=== PATIENT | female | born 1950 | race Caucasian/White ===

== ENCOUNTER 2016-08-16 18:18 | Observation (INO) | payer OTHER ==
[~2016-08-16] VITALS: Ht 170.2 cm; Wt 63.0 kg
[~2016-08-16 18:18] MED LIST: XANA0.5T PO
[2016-08-16 18:30] VITALS: BP 134/66; PULSE 73; RESP 18; TEMP 98.6; O2SAT 96
[2016-08-16 19:00] VITALS: RESP 15; O2SAT 98
[2016-08-16] MEDS ORDERED: SODIUM CHLOR 0.9% 1000 ML INJ 1,000 ML IV SCH ×3 (19:10→21:29)
--- NOTE | 2016-08-16 19:56 | RADRPT ---
EXAM DATE/TIME: 08/16/2016 19:20 [facility] COMPARISON: No previous studies available for comparison. INDICATIONS : Syncope MEDICAL HISTORY : None. SURGICAL HISTORY : None. ENCOUNTER: Initial ACUITY: 1 day PAIN SCORE: Non-responsive. LOCATION: chest FINDINGS: A single view of the chest demonstrates the lungs to be symmetrically aerated without evidence of mas s, infiltrate or effusion. The cardiomediastinal contours are unremarkable. Osseous structures are intact. CONCLUSION: The lungs are clear. No evidence of pneumothorax. Alcon Trejo MD on August 16, 2016 at 19:53 Board Certified Radiologist. This report was verified electronically.
[2016-08-16 19:58] LABS: AUTOMATED NEUTROPHIL # 8.3 TH/MM3 (1.8-7.7); BASOPHIL % 0.1 % (0.0-2.0); EOSINOPHIL % 0.3 % (0.0-4.0); HEMATOCRIT 37.5 % (35.0-46.0); HEMO FLAGS DIFF FINAL; LYMPH % 6.8 % (9.0-44.0); LYMPHOCYTE # 0.6 TH/MM3 (1.0-4.8); MEAN CELL VOLUME 92.2 FL (80.0-100.0); MEAN CORPUSCULAR HEMOGLOBIN 31.9 PG (27.0-34.0); MEAN CORPUSCULAR HGB CONC 34.6 % (32.0-36.0); MONO % 4.7 % (0.0-8.0); NEUT % 88.1 % (16.0-70.0); PLATELET COUNT 282 TH/MM3 (150-450); RED BLOOD COUNT 4.07 MIL/MM3 (4.00-5.30); RED CELL DISTRIBUTION WIDTH 13.5 % (11.6-17.2); WHITE BLOOD COUNT 9.4 TH/MM3 (4.0-11.0)
--- NOTE | 2016-08-16 20:00 | RADRPT ---
EXAM DATE/TIME: 08/16/2016 19:21 [facility] COMPARISON: No previous studies available for comparison. INDICATIONS : Altered mental status today. RADIATION DOSE: 29.34 CTDIvol (mGy) MEDICAL HISTORY : None SURGICAL HISTORY : None. ENCOUNTER: Initial ACUITY: 1 day PAIN SCALE: Non-responsive LOCATION: Bilateral head TECHNIQUE: Multiple contiguous axial images were obtained of the head. Using automated exposure control and adj ustment of the mA and/or kV according to patient size, radiation dose was kept as low as reasonably a chievable to obtain optimal diagnostic quality images. DICOM format image data is available electro nically for review and comparison. FINDINGS: CEREBRUM: The ventricles are normal for age. No evidence of midline shift, mass lesion, hemorrhage or acute in farction. No extra-axial fluid collections are seen. POSTERIOR FOSSA: The cerebellum and brainstem are intact. The 4th ventricle is midline. The cerebellopontine angle i s unremarkable. EXTRACRANIAL: The visualized portion of the orbits is intact. SKULL: The calvaria is intact. No evidence of skull fracture. CONCLUSION: Negative noncontrast CT brain. Alcon Trejo MD on August 16, 2016 at 19:57 Board Certified Radiologist. This report was verified electronically.
[2016-08-16 20:16] LABS: AST (GOT) 17 U/L (15-37); BICARBONATE 26.3 MEQ/L (21.0-32.0); BLOOD UREA NITROGEN 6 MG/DL (7-18); GLOMERULAR FILTRATION RATE 101 ML/MIN (>89); MAGNESIUM 2.2 MG/DL (1.5-2.5)
--- NOTE | 2016-08-16 20:24 | PD ---
HPI Chief Complaint: Altered Mental Status Time Seen by Provider: 20:20 Travel History International Travel<30 days: No Contact w/Intl Traveler<30days: No Traveled to known affect area: No History of Present Illness HPI 65-year-old female that presents to the ED for evaluation of upper mental status. Patient was brought here by ambulance for evaluation of this. Patient reportedly possibly took one of her Xanax. Patient was found at her home of residence with no pants sleeping on the ER. Per report patient apparently was put in retirement with her son yesterday and she was released from retirement yesterday and apparently she is feeling guilty because her son is still in retirement. Patient does have a history of mood disorder and has been seen here psychiatrically before. Patient apparently takes Xanax 2 mg chronically and possibly 2. Unclear history as patient at the time appears to be altered and sedated. She is able to respond to stimuli and open her eyes when questioning does for the most part she continues to fall asleep on my examination. She has no obvious sign of trauma. No allergies to medication. No cuts that I can see. No other medical problems. Again history is somewhat limited because of patient's mental status. PFSH Past Medical History Medical History: Unable to Obtain Anxiety: Yes Cancer: No Immune Disorder: No Psychiatric: Yes (PTSD) Tetanus Vaccination: Unknown ?: Not Past Surgical History Surgical History: Unable to Obtain Social History Alcohol Use: Yes Tobacco Use: No Substance Use: No Allergies-Medications (Allergen,Severity, Reaction): Coded Allergies: No Known Allergies (Unverified , 03/03/14) Reported Meds & Prescriptions Reported Meds & Active Scripts Active Active Prescriptions or Reported Medications Unobtainable Review of Systems ROS Limitations: Intoxication, Altered Mental Status Except as stated in HPI: all other systems reviewed are Neg Physical Exam Exam Limitations: Intoxication, Altered Mental Status Narrative GENERAL: SKIN: Warm and dry. HEAD: Atraumatic. Normocephalic. EYES: Pupils equal and round. No scleral icterus. No injection or drainage. ENT: No nasal bleeding or discharge. Mucous membranes pink and moist. Tongue is midline. No uvula deviation. NECK: Trachea midline. No JVD. CARDIOVASCULAR: Regular rate and rhythm. No murmurs, S3, S4. RESPIRATORY: No accessory muscle use. Clear to auscultation. Breath sounds equal bilaterally. GASTROINTESTINAL: Abdomen soft, non-tender, nondistended. Hepatic and splenic margins not palpable. MUSCULOSKELETAL: Extremities without clubbing, cyanosis, or edema. No obvious deformities. Full range of motion of the upper and lower extremities bilaterally. 2+ pulses bilaterally. No lumbar, thoracic, cervical spine tenderness to palpation. NEUROLOGICAL: Awake and alert. No obvious cranial nerve deficits. Motor grossly within normal limits. Five out of 5 muscle strength in the arms and legs. Normal speech. PSYCHIATRIC: Altered mood and affect; insight and judgment are hard to assess Data Data Last Documented VS Vital Signs Date Time Temp Pulse Resp B/P Pulse Ox O2 Delivery O2 Flow Rate FiO2 08/16/16 19:00 15 98 Room Air 08/16/16 19:00 77 08/16/16 18:30 98.6 134/66 Orders Electrocardiogram (08/16/16 19:09) Complete Blood Count With Diff (08/16/16 19:09) Comprehensive Metabolic Panel (08/16/16 19:) Ckmb (Isoenzyme) Profile (08/16/16:) Troponin I (08/16/16:) Prothrombin Time / Inr (Pt) (08/16/16:09) Act Partial Throm Time (Ptt) (08/16/16 19:09) Blood Culture (08/16/16:) Lipase (08/16/16:) Urinalysis - C+S If Indicated (08/16/16 19:09) Cath For Specimen (08/16/16 19:09) Magnesium (Mg) (08/16/16 19:09) Ammonia (08/16/16:) Thyroid Stimulating Hormone (08/16/16 19:09) Chest, Single Ap (08/16/16:) Ct Brain W/O Iv Contrast(Rout) (08/16/16 19:09) Iv Access Insert/Monitor (08/16/16 19:09) Ecg Monitoring (08/16/16:) Oximetry (08/16/16 19:09) Drug Screen, Random Urine (08/16/16 19:09) Alcohol (Ethanol) (08/16/16 19:09) Salicylates (Aspirin) (08/16/16 19:09) Tylenol (Acetaminophen) (08/16/16 19:09) Sodium Chlor 0.9% 1000 Ml Inj (Ns 1000 M (08/16/16 19:10) Lactic Acid (08/16/16 19:14) Labs Laboratory Tests Test 08/16/16 08/16/16 19:35 19:42 White Blood Count 9.4 TH/MM3 Red Blood Count 4.07 MIL/MM3 Hemoglobin 13.0 GM/DL Hematocrit 37.5 % Mean Corpuscular Volume 92.2 FL Mean Corpuscular Hemoglobin 31.9 PG Mean Corpuscular Hemoglobin 34.6 % Concent Red Cell Distribution Width 13.5 % Platelet Count 282 TH/MM3 Mean Platelet Volume 8.2 FL Neutrophils (%) (Auto) 88.1 % Lymphocytes (%) (Auto) 6.8 % Monocytes (%) (Auto) 4.7 % Eosinophils (%) (Auto) 0.3 % Basophils (%) (Auto) 0.1 % Neutrophils # (Auto) 8.3 TH/MM3 Lymphocytes # (Auto) 0.6 TH/MM3 Monocytes # (Auto) 0.4 TH/MM3 Eosinophils # (Auto) 0.0 TH/MM3 Basophils # (Auto) 0.0 TH/MM3 CBC Comment DIFF FINAL Differential Comment Carbon Dioxide Level 26.3 MEQ/L Blood Urea Nitrogen 6 MG/DL Creatinine 0.60 MG/DL Estimat Glomerular Filtration 101 ML/MIN Rate Random Glucose 92 MG/DL Calcium Level 8.4 MG/DL Magnesium Level 2.2 MG/DL Aspartate Amino Transf 17 U/L (AST/SGOT) Albumin 4.0 GM/DL Lipase 188 U/L Salicylates Level 1.8 MG/DL Ethyl Alcohol Level 91 MG/DL Ammonia 28 MCMOL/L [facility] Medical Decision Making Medical Screen Exam Complete: Yes Emergency Medical Condition: Yes Medical Record Reviewed: Yes Interpretation(s) Last Impressions Head CT 08/16/161908 Signed Impressions: Service Date/Time: Tuesday, August 16, 2016 19:21 - CONCLUSION: Negative noncontrast CT brain. Alcon Trejo MD Chest X-Ray 08/16/161908 Signed Impressions: Service Date/Time: Tuesday, August 16, 2016 19:20 - CONCLUSION: The lungs are clear. No evidence of pneumothorax. Alcon Treoj MD CBC & BMP Diagram 08/16/16 19:35 Differential Diagnosis Altered mental status versus overdose versus alcohol abuse versus benzo intoxication versus suicidal ideation Narrative Course 65-year-old female that presents to the ED for evaluation of altered mental status. Patient was properly examined and was found to have signs and symptoms consistent with appears to be altered mental status. Unclear etiology. Patient does appear to smell somewhat of alcohol and possibly took some benzos. History is difficult because patient is lethargic on examination but arousable. She seems to be protecting her airway well. She is neurovascular intact otherwise. No signs of trauma. Labs and imaging will be ordered. Labs and imaging showed Scripts Unable to Obtain Active Prescriptions or Reported Meds Francis Barker Aug 16, 2016 20:24
[2016-08-16 20:32] LABS: APTT (PATIENT) 24.7 SEC (24.3-30.1); INTERNATIONAL NORMALIZED RATIO 0.9 RATIO
[2016-08-16 20:37] LABS: ACETAMINOPHEN LESS THAN 2.0 MCG/ML (10.0-30.0); ALKALINE PHOSPHATASE 44 U/L (45-117); ALT (GPT) 20 U/L (10-53); ANION GAP 8 MEQ/L (5-15); CHLORIDE 90 MEQ/L (98-107); CREATINE KINASE 194 U/L (26-192); POTASSIUM 3.5 MEQ/L (3.5-5.1); TOTAL BILIRUBIN ADULT 0.5 MG/DL (0.2-1.0)
[2016-08-16 20:40] LABS: SODIUM (NA) 124 MEQ/L (136-145)
[2016-08-16 20:56] LABS: CKMB 2.1 NG/ML (0.5-3.6)
[2016-08-16 21:00] VITALS: BP 117/59; PULSE 74; RESP 14; O2SAT 94
[2016-08-16 21:15] LABS: BLOOD, URINE SMALL (NEG); COMMENT (UR) CULT NOT INDICATED; CULTURE IF INDICATED CULT NOT INDICATED; GLUCOSE,URINE NEG (NEG); KETONE, URINE NEG (NEG); NITRITE,URINE NEG (NEG); URINE COLOR LIGHT-YELLOW (YELLW/STRAW)
[2016-08-16 21:23] LABS: AMPHETAMINE, URINE NEG (NEG); BARBITURATES, URINE NEG (NEG); COCAINE, URINE NEG (NEG)
[2016-08-16] MEDS ORDERED: BISACODYL 10 MG SUPP RECTAL PRN (21:30)
[2016-08-16] MEDS ORDERED: SENNOSIDES 8.6 MG TAB PO PRN (21:30)
[2016-08-16] MEDS ORDERED: ACETAMINOPHEN 325 MG TAB PO PRN (21:30)
[2016-08-16] MEDS ORDERED: LACTULOSE SYRUP 20 GM/30 ML CUP PO PRN (21:30)
[2016-08-16] MEDS ORDERED: MAGNESIUM HYDROXIDE SUSP 30 ML CUP PO PRN (21:30)
[2016-08-16] MEDS ORDERED: SODIUM CHLORIDE 0.9% FLUSH 10 ML FLUSH IV FLUSH PRN (21:30)
[2016-08-16] MEDS ORDERED: ONDANSETRON HCL 4 MG/2 ML VIAL IVP PRN (21:30)
--- NOTE | 2016-08-16 21:32 | HHI.HP ---
[facility] Service [place] [facility] Primary Care Physician Douglas Maldonado MD Admission Diagnosis altered mental status, hyponatremia, BA Diagnoses: (1) Encephalopathy Diagnosis: Principal (2) Alcohol intoxication Diagnosis: Principal (3) Dehydration Diagnosis: Principal (4) Hyponatremia Diagnosis: Principal (5) Lactic acidosis Diagnosis: Principal (6) Suicidal ideation Diagnosis: Principal Travel History International Travel<30 Days: No Contact w/Intl Traveler <30 Da: No Traveled to Known Affected Are: No History of Present Illness This is a 65-year-old female with a PMH of Anxiety, PTSD, Mood Disorder and Alcohol Abuse who was brought to the ER by EMS after being found lying in her front yard without pants on. Per report, states pt upset because Son is in shelter and she feels guilty and had taken one tablet of Xanax. On arrival, was noted to be lethargic, intermittently arousable and answering only few questions. While in ER, pt w/ improved mental status, did relay Suicidal Ideation, currently under [place]. On arrival, BP 117/59, HR 74, O2 sat 94% on RA, Afebrile. CBC unremarkable. Na 124, Lactic Acid 2.2. Ammonia 28. INR 0.9. UA negative. Urine Drug Screen positive for Benzo. Alcohol 91. CT Head negative. CXR with no acute findings. Review of Systems ROS: Unable to obtain secondary to altered mental status. Past Family Social History Past Medical History PMH: Anxiety, PTSD, Mood Disorder and Alcohol Abuse Past Surgical History PAST SURGICAL HISTORY: Unknown Allergies: Coded Allergies: No Known Allergies (Unverified , 03/03/14) Family History PAST FAMILY HISTORY: Reviewed. No h/o DM or CAD Social History PAST SOCIAL HISTORY: History of alcohol abuse, unable to quantify. Negative for tobacco or drugs. Physical Exam Vital Signs Vital Signs Date Time Temp Pulse Resp B/P Pulse Ox O2 Delivery O2 Flow Rate FiO2 08/16/16 19:00 15 98 Room Air 08/16/16 19:00 77 16 97 Room Air 08/16/16 18:30 98.6 73 18 134/66 96 Physical Exam PE: GENERAL: Middle-aged white female in no acute distress. Intoxicated, smells of alcohol, rouses to name, answers few questions. HEENT: PERRLA, EOMI. No scleral icterus or conjunctival pallor. No lid lag or facial droop. CARDIOVASCULAR: Regular rate and rhythm. No obvious murmurs to auscultation. No chest tenderness to palpation. RESPIRATORY: No obvious rhonchi or wheezing. Clear to auscultation. Breath sounds equal bilaterally. GASTROINTESTINAL: Abdomen soft, non-tender, nondistended. BS normal. MUSCULOSKELETAL: Extremities without clubbing, cyanosis, or edema. No obvious deformities. NEUROLOGICAL: Awake, alert and oriented x4. No focal neurologic deficits. Moving both upper and lower extremities spontaneously. Laboratory Laboratory Tests Test 08/16/16 08/16/16 08/16/16 19:35 19:42 20:15 White Blood Count 9.4 Red Blood Count 4.07 Hemoglobin 13.0 Hematocrit 37.5 Mean Corpuscular Volume 92.2 Mean Corpuscular Hemoglobin 31.9 Mean Corpuscular Hemoglobin 34.6 Concent Red Cell Distribution Width 13.5 Platelet Count 282 Mean Platelet Volume 8.2 Neutrophils (%) (Auto) 88.1 Lymphocytes (%) (Auto) 6.8 Monocytes (%) (Auto) 4.7 Eosinophils (%) (Auto) 0.3 Basophils (%) (Auto) 0.1 Neutrophils # (Auto) 8.3 Lymphocytes # (Auto) 0.6 Monocytes # (Auto) 0.4 Eosinophils # (Auto) 0.0 Basophils # (Auto) 0.0 CBC Comment DIFF FINAL Differential Comment Prothrombin Time 10.0 Prothromb Time International 0.9 Ratio Activated Partial 24.7 Thromboplast Time Sodium Level 124 Potassium Level 3.5 Chloride Level 90 Carbon Dioxide Level 26.3 Anion Gap 8 Blood Urea Nitrogen 6 Creatinine 0.60 Estimat Glomerular Filtration 101 Rate Random Glucose 92 Calcium Level 8.4 Magnesium Level 2.2 Total Bilirubin 0.5 Aspartate Amino Transf 17 (AST/SGOT) Alanine Aminotransferase 20 (ALT/SGPT) Alkaline Phosphatase 44 Total Creatine Kinase 194 Creatine Kinase MB 2.1 Creatine Kinase MB % 1.1 Troponin I LESS THAN 0.02 Total Protein 7.0 Albumin 4.0 Lipase 188 Thyroid Stimulating Hormone 0.588 3rd Gen Salicylates Level 1.8 Acetaminophen Level LESS THAN 2.0 Ethyl Alcohol Level 91 Lactic Acid Level 2.2 Ammonia 28 Urine Color LIGHT-YELLOW Urine Turbidity CLEAR Urine pH 6.0 Urine Specific [place] 1.004 Urine Protein NEG Urine Glucose (UA) NEG Urine Ketones NEG Urine Occult Blood SMALL Urine Nitrite NEG Urine Bilirubin NEG Urine Urobilinogen LESS THAN 2.0 Urine Leukocyte Esterase NEG Urine RBC 2 Urine WBC LESS THAN 1 Microscopic Urinalysis Comment CULT NOT INDICATED Urine Opiates Screen NEG Urine Barbiturates Screen NEG Urine Amphetamines Screen NEG Urine Benzodiazepines Screen POS Urine Cocaine Screen NEG Urine Cannabinoids Screen NEG Date/Time Procedure Status Source Growth 08/16/16 19:46 Aerobic Blood Culture Received Blood Peripheral Pending 08/16/16 19:46 Anaerobic Blood Culture Received Blood Peripheral Pending Result Diagram: 08/16/16193408/16/161934 Assessment and Plan Problem List: (1) Encephalopathy ICD Code: G93.40 Status: Acute (2) Alcohol intoxication ICD Code: F10.929 Status: Acute (3) Suicidal ideation ICD Code: R45.851 Status: Acute (4) Hyponatremia ICD Code: E87.1 Status: Acute (5) Lactic acidosis ICD Code: E87.2 Status: Acute (6) Dehydration ICD Code: E86.0 Status: Acute Assessment and Plan A/P: 1. Encephalopathy: Likely secondary to Alcohol Intoxication/Benzo. CT Head w / no acute findings, images reviewed by me. Mental status improved while in ER , currently more rousable. Neuro checks q4h. 2. Alcohol Intoxication: H/o Alcohol Abuse w/ Acute Alcohol Intoxication, Alcohol 91. Drinks daily per report, unknown amount. CIWA, Seizure Precautions , MVT/Thiamine/Folate replacement. 3. Suicidal Ideation: Per , pt feeling guilty because Son is in shelter. Pt relayed suicidal ideation, currently under [place] Act. Consult Psych for further eval. 4. Hyponatremia: Na 124, likely secondary to alcohol abuse/dehydration, s/p 2L IVF in ER, will recheck labs. 5. Lactic Acidosis: Lactate 2.2, no evidence of sepsis, likely secondary to dehydration. Repeat lactate 6. DVT Prophylaxis: SCD/Teds. 7. Social work for d/c planning as needed. 8. Case discussed w/ ER physician at length. Sirisha Mon MD Aug 16, 2016 21:32
[2016-08-16 23:12] LABS: BICARBONATE 25.4 MEQ/L (21.0-32.0)
[2016-08-17 01:54] VITALS: BP 121/68; PULSE 78; RESP 18; TEMP 98.8; O2SAT 97
[2016-08-17 04:00] VITALS: BP 110/65; PULSE 77; RESP 18; TEMP 98; O2SAT 96
[2016-08-17 06:02] LABS: AUTOMATED NEUTROPHIL # 5.1 TH/MM3 (1.8-7.7); BASOPHIL % 0.2 % (0.0-2.0); EOSINOPHIL % 0.7 % (0.0-4.0); HEMO FLAGS DIFF FINAL; LYMPH % 14.8 % (9.0-44.0); MEAN CELL VOLUME 92.1 FL (80.0-100.0); MEAN CORPUSCULAR HEMOGLOBIN 31.3 PG (27.0-34.0); MONO % 7.8 % (0.0-8.0); NEUT % 76.5 % (16.0-70.0); PLATELET COUNT 267 TH/MM3 (150-450); RED CELL DISTRIBUTION WIDTH 13.2 % (11.6-17.2); WHITE BLOOD COUNT 6.7 TH/MM3 (4.0-11.0)
[2016-08-17 06:31] LABS: ALKALINE PHOSPHATASE 37 U/L (45-117); ALT (GPT) 16 U/L (10-53); ANION GAP 8 MEQ/L (5-15); AST (GOT) 16 U/L (15-37); BICARBONATE 24.2 MEQ/L (21.0-32.0); BLOOD UREA NITROGEN 5 MG/DL (7-18); CHLORIDE 102 MEQ/L (98-107); GLOMERULAR FILTRATION RATE 107 ML/MIN (>89); POTASSIUM 4.1 MEQ/L (3.5-5.1); SODIUM (NA) 134 MEQ/L (136-145); TOTAL BILIRUBIN ADULT 0.7 MG/DL (0.2-1.0)
[2016-08-17 07:20] VITALS: BP 121/73; PULSE 67; RESP 16; TEMP 98.9; O2SAT 94
[2016-08-17] MEDS ORDERED: SODIUM CHLORIDE 0.9% FLUSH 10 ML FLUSH IV FLUSH SCH (09:00)
[2016-08-17] MEDS ORDERED: DOCUSATE SODIUM 50 MG/SENNA 8.6 MG TAB PO SCH (09:00)
[2016-08-17] MEDS ORDERED: cloNIDine HCL 0.1 MG TAB PO PRN (09:45)
[2016-08-17] MEDS ORDERED: LORazepam 2 MG TAB PO PRN (09:45)
[2016-08-17] MEDS ORDERED: LORazepam 2 MG/ML VIAL IV PUSH PRN ×4 (09:45)
[2016-08-17] MEDS ORDERED: HALOPERIDOL LACTATE 5 MG/ML AMP IM PRN (09:45)
[2016-08-17] MEDS ORDERED: FLUMAZENIL 0.5 MG/5 ML VIAL IV PUSH PRN (09:45)
[2016-08-17] MEDS ORDERED: LORazepam 1 MG TAB PO PRN (09:45)
[2016-08-17] MEDS ORDERED: FOLIC ACID 1 MG TAB PO SCH (10:00)
[2016-08-17] MEDS ORDERED: THIAMINE HCL 100 MG TAB PO SCH (10:00)
[2016-08-17] MEDS ORDERED: MULTIVITAMINS/MINERALS THERAPEUTIC TAB PO SCH (10:00)
--- NOTE | 2016-08-17 10:32 | PD.PSY.CON ---
Provisional Diagnosis Admission Date Aug 16, 2016 at 21:28 [place] I. Major depressive disorder, single episode, R/o substance-induced mood disorder, R/O hypoactive delirium, anxiety [place] II. deferred History of Present Illness Service Psychiatry Consult Requested By Primary Care Physician Douglas Maldonado MD HPI The patient is a 65-year-old woman, employed as a medical instrument technician, domicile with her in [place], with psychiatric history of anxiety, PTSD, alcohol use disorder, depression, 1 previous psychiatric hospitalizations here at [facility], documentation review, no previous suicidal attempt, she is on Xanax 1 mg 4 times per day prescribed by PCP, no significant medical history, who was brought to the ER by EMS after being found lying in her front yard without pants on. Per report, states pt upset because Son is in penitentiary and she feels guilty and had taken one tablet of Xanax. On arrival, was noted to be lethargic, intermittently arousable and answering only few questions. While in ER, pt w/ improved mental status, did relay Suicidal Ideation, currently under [place] Act. On arrival, BP 117/59, HR 74, O2 sat 94% on RA, Afebrile. CBC unremarkable. Na 124, Lactic Acid 2.2. Ammonia 28. INR 0.9. UA negative. Urine Drug Screen positive for Benzo. Alcohol 91. CT Head negative. CXR with no acute findings. Also the to psychiatry due to suicidal ideation. Consulted to psychiatry due to SI. On somatic evaluation today patient is poorly cooperative, at the beginning selectively mute, difficult to engage in a conversation, very distant. With redirection and reassurance patient was able to answer minimally some questions. She says that she has been depressed and is better to be . She says that it is her fault that her son is in penitentiary and most probably is going to be imprison some "because I was not a good mother". She reports guiltiness, depression, low level energy, insomnia, and increased use of alcohol. She reports suicidal ideation, no active plan. Patient is oriented 3, she seems to be hypoactive and lethargic. Her Alcon Stevenson, , use as a collateral information, says that the patient has been acting very bizarrely in the last days, before yesterday she was arrested because she was trespassing a house in her neighborhood. She had also been talking to himself, easily distracted, missing job days and taking a lot of alcohol. However, he says that even though when she is not taking any alcohol she has been very tearful, blaming herself of her son situation and voicing suicidal ideation. Review of Systems Constitutional: DENIES: Diaphoretic episodes, Fatigue, Fever, Weight gain, Weight loss, Chills, Dizziness, Change in appetite, Night Sweats Endocrine: DENIES: Abnorml menstrual pattern, Heat/cold intolerance, Polydipsia , Polyuria, Polyphagia Eyes: DENIES: Blurred vision, Diplopia, Eye inflammation, Eye pain, Vision loss , Photosensitivity, Double Vision Ears, nose, mouth, throat: DENIES: Tinnitus, Hearing loss, Vertigo, Nasal discharge, Oral lesions, Throat pain, Hoarseness, Ear Pain, Running Nose, Epistaxis, Sinus Pain, Toothache, Odynophagia Respiratory: DENIES: Apneas, Cough, Snoring, Wheezing, Hemoptysis, Sputum production, Shortness of breath Cardiovascular: DENIES: Chest pain, Palpitations, Syncope, Dyspnea on Exertion , PND, Lower Extremity Edema, Orthopnea, Claudication Gastrointestinal: DENIES: Abdominal pain, Black stools, Bloody stools, Constipation, Diarrhea, Nausea, Vomiting, Difficulty Swallowing, Anorexia Genitourinary: DENIES: Abnormal vaginal bleeding, Dysmenorrhea, Dyspareunia, Sexual dysfunction, Urinary frequency, Urinary incontinence, Urgency, Hematuria , Dysuria, Nocturia, Vaginal discharge Musculoskeletal: DENIES: Joint pain, Muscle aches, Stiffness, Joint Swelling, Back pain, Neck pain Hematologic/lymphatic: DENIES: Bruising, Lymphadenopathy Psychiatric: COMPLAINS OF: Depression Past Family Social History Coded Allergies: No Known Allergies (Unverified , 03/03/14) Discontinued Reported Medications Alprazolam (Xanax 0.5 mg)Alprazolam 0.5 mg Tab1 Tab PO Q6H PRN (ANXIETY) 03/03/14 Current Medications Medications (Trade) Dose Ordered Sig/Macrina Route Start Time Stop Time Status Last Admin (NS Flush) 2 ml UNSCH PRN IV FLUSH 08/16/16 21:30 (NS Flush) 2 ml BID IV FLUSH 08/17/16 09:00 (Zofran Inj) 4 mg Q6H PRN IVP 08/16/16 21:30 (Tylenol) 650 mg Q6H PRN PO 08/16/16 21:30 (Yoanna-Colace) 1 tab BID PO 08/17/16 09:00 (Milk Of Magnesia Liq) 30 ml Q12H PRN PO 08/16/16 21:30 (Senokot) 17.2 mg Q12H PRN PO 08/16/16 21:30 (Dulcolax Supp) 10 mg DAILY PRN RECTAL 08/16/16 21:30 (Lactulose Liq) 30 ml DAILY PRN PO 08/16/16 21:30 (Folate) 1 mg DAILY PO 08/17/16 10:00 08/22/16 09:59 (Vitamin B1) 100 mg DAILY PO 08/17/16 10:00 (Theragran M Tab) 1 tab DAILY PO 08/17/16 10:00 08/22/16 09:59 (Catapres) 0.1 mg Q6H PRN PO 08/17/16 09:45 (Romazicon Inj) 0.2 mg Q1M PRN IV PUSH 08/17/16 09:45 (Ativan) 1 mg Q4H PRN PO 08/17/16 09:45 (Ativan Inj) 1 mg Q4H PRN IV PUSH 08/17/16 09:45 (Ativan) 2 mg Q2H PRN PO 08/17/16 09:45 (Ativan Inj) 2 mg Q2H PRN IV PUSH 08/17/16 09:45 (Ativan Inj) 2 mg Q1H PRN IV PUSH 08/17/16 09:45 (Ativan Inj) 2 mg Q15M PRN IV PUSH 08/17/16 09:45 (Haldol Inj) 2 mg Q15M PRN IM 08/17/16 09:45 Family History Patient denies family psychiatric history Social History Patient lives in [place] with her , 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 Patient's Strengths (min. 2) support, employed Physical Exam Vital Signs Vital Signs Date Time Temp Pulse Resp B/P Pulse Ox O2 Delivery O2 Flow Rate FiO2 08/17/16 07:20 98.9 67 16 121/73 94 08/16/16 21:00 Room Air Lab Results Laboratory Tests Test 08/16/16 08/16/16 08/16/16 19:35 19:42 20:15 White Blood Count 9.4 Red Blood Count 4.07 Hemoglobin 13.0 Hematocrit 37.5 Mean Corpuscular Volume 92.2 Mean Corpuscular Hemoglobin 31.9 Mean Corpuscular Hemoglobin 34.6 Concent Red Cell Distribution Width 13.5 Platelet Count 282 Mean Platelet Volume 8.2 Neutrophils (%) (Auto) 88.1 Lymphocytes (%) (Auto) 6.8 Monocytes (%) (Auto) 4.7 Eosinophils (%) (Auto) 0.3 Basophils (%) (Auto) 0.1 Neutrophils # (Auto) 8.3 Lymphocytes # (Auto) 0.6 Monocytes # (Auto) 0.4 Eosinophils # (Auto) 0.0 Basophils # (Auto) 0.0 CBC Comment DIFF FINAL Differential Comment Prothrombin Time 10.0 Prothromb Time International 0.9 Ratio Activated Partial 24.7 Thromboplast Time Sodium Level 124 Potassium Level 3.5 Chloride Level 90 Carbon Dioxide Level 26.3 Anion Gap 8 Blood Urea Nitrogen 6 Creatinine 0.60 Estimat Glomerular Filtration 101 Rate Random Glucose 92 Calcium Level 8.4 Magnesium Level 2.2 Total Bilirubin 0.5 Aspartate Amino Transf 17 (AST/SGOT) Alanine Aminotransferase 20 (ALT/SGPT) Alkaline Phosphatase 44 Total Creatine Kinase 194 Creatine Kinase MB 2.1 Creatine Kinase MB % 1.1 Troponin I LESS THAN 0.02 Total Protein 7.0 Albumin 4.0 Lipase 188 Thyroid Stimulating Hormone 0.588 3rd Gen Salicylates Level 1.8 Acetaminophen Level LESS THAN 2.0 Ethyl Alcohol Level 91 Lactic Acid Level 2.2 Ammonia 28 Urine Color LIGHT-YELLOW Urine Turbidity CLEAR Urine pH 6.0 Urine Specific [place] 1.004 Urine Protein NEG Urine Glucose (UA) NEG Urine Ketones NEG Urine Occult Blood SMALL Urine Nitrite NEG Urine Bilirubin NEG Urine Urobilinogen LESS THAN 2.0 Urine Leukocyte Esterase NEG Urine RBC 2 Urine WBC LESS THAN 1 Microscopic Urinalysis Comment CULT NOT INDICATED Urine Opiates Screen NEG Urine Barbiturates Screen NEG Urine Amphetamines Screen NEG Urine Benzodiazepines Screen POS Urine Cocaine Screen NEG Urine Cannabinoids Screen NEG Date/Time Procedure Status Source Growth 08/16/16 19:46 Aerobic Blood Culture Received Blood Peripheral Pending 08/16/16 19:46 Anaerobic Blood Culture Received Blood Peripheral Pending Result Diagram: 08/16/16193408/16/161934 Mental Status Examination Appearance woman, cover with a blanket, poorly cooperative, distant Speech: Hesitant, Slow Orientation: x3 Memory: Unremarkable Thought Process: Goal Directed Thought Content: Unremarkable Hallucination Type: None Attention and Concentration: Good Previous Suicide Attempts: Yes Homicidal Ideation: No Insight: Poor Affect: Irritable, Sad Mood: Sad Motor Activity: Normal gait Assessment & Plan Problem List: (1) Major depressive disorder, single episode Assessment & Plan: Patient endorses symptomatology of depression, she reports guiltiness, level of energy, decreased functionality, poor sleep, decreased concentration, permanent sadness and increased alcohol use. Patient has had also persistent suicidal ideation without any specific plan at this moment. Due to her increased risk of dangerousness to herself patient will be admitted in psychiatry for stabilization safety. No psychotropics indicated at this moment. Continue CIWA protocol. Transfer patient to psychiatry once medically clear. I will follow up in the medical floor. Continue one-to-one sitter in ER at medical floor. ICD Code: F32.9 Assessment & Plan Estimated LOS: days Raimundo Murcia MD Aug 17, 2016 10:32
--- NOTE | 2016-08-17 10:47 | HHI.PR ---
Subjective Remarks Follow up for encephalopathy/intoxication with suicidal ideations. The patient is awake, alert, oriented to person, place, and date. She doesn't recall everything leading up to her admission, but does remember drinking 6 beers yesterday then being "out in the hot sun". She does not recall passing out in the lawn. She is guarded with further questioning but denies any specific suicidal ideations. She ate most of her breakfast this morning. Objective Vitals Vital Signs Date Time Temp Pulse Resp B/P Pulse Ox O2 Delivery O2 Flow Rate FiO2 08/17/16 07:20 98.9 67 16 121/73 94 08/17/16 04:00 98.0 77 18 110/65 96 08/17/16 01:54 98.8 78 18 121/68 97 08/16/16 21:00 74 14 117/59 94 Room Air 08/16/16 19:00 15 98 Room Air 08/16/16 19:00 77 16 97 Room Air 08/16/16 18:30 98.6 73 18 134/66 96 I/O 08/16/16 08/16/16 08/16/16 08/17/16 08/17/16 08/17/16 07:00 15:00 23:00 07:00 15:00 23:00 Intake Total 600 ml Balance 600 ml Intake IV Total 600 ml # Voids 3 Result Diagram: 08/17/16 0439 08/17/16 0439 Imaging Last Impressions Head CT 08/16/161908 Signed Impressions: Service Date/Time: Tuesday, August 16, 2016 19:21 - CONCLUSION: Negative noncontrast CT brain. Alcon Trejo MD Chest X-Ray 08/16/161908 Signed Impressions: Service Date/Time: Tuesday, August 16, 2016 19:20 - CONCLUSION: The lungs are clear. No evidence of pneumothorax. Alcon Trejo MD Objective Remarks GENERAL: Well-nourished, well-developed thin female patient in [facility]. SKIN: Warm and dry. No rash. HEAD: Normocephalic. Atraumatic. EYES: Pupils equal and round. No scleral icterus. No injection or drainage. ENT: No nasal bleeding or discharge. Mucous membranes pink and moist. NECK: Supple. Trachea midline. CARDIOVASCULAR: Regular rate and rhythm. S1, S2 noted. No murmur appreciated. RESPIRATORY: No accessory muscle use. Clear to auscultation. Breath sounds equal bilaterally. GASTROINTESTINAL: Abdomen soft, non-tender, nondistended. Normoactive bowel sounds x4. MUSCULOSKELETAL: No obvious deformities. Extremities without clubbing, cyanosis , or edema. NEUROLOGICAL: Awake and alert. No obvious cranial nerve deficits. Motor grossly within normal limits. 5/5 muscle strength in bilateral upper and lower extremities. Normal speech. PSYCHIATRIC: Guarded and depressed mood; insight and judgment normal. Medications and IVs Current Medications Medications (Trade) Dose Ordered Sig/Macrina Route Start Time Stop Time Status Last Admin (NS Flush) 2 ml UNSCH PRN IV FLUSH 08/16/16 21:30 (NS Flush) 2 ml BID IV FLUSH 08/17/16 09:00 (Zofran Inj) 4 mg Q6H PRN IVP 08/16/16 21:30 (Tylenol) 650 mg Q6H PRN PO 08/16/16 21:30 (Yoanna-Colace) 1 tab BID PO 08/17/16 09:00 (Milk Of Magnesia Liq) 30 ml Q12H PRN PO 08/16/16 21:30 (Senokot) 17.2 mg Q12H PRN PO 08/16/16 21:30 (Dulcolax Supp) 10 mg DAILY PRN RECTAL 08/16/16 21:30 (Lactulose Liq) 30 ml DAILY PRN PO 08/16/16 21:30 (Folate) 1 mg DAILY PO 08/17/16 10:00 08/22/16 09:59 (Vitamin B1) 100 mg DAILY PO 08/17/16 10:00 (Theragran M Tab) 1 tab DAILY PO 08/17/16 10:00 08/22/16 09:59 (Catapres) 0.1 mg Q6H PRN PO 08/17/16 09:45 (Romazicon Inj) 0.2 mg Q1M PRN IV PUSH 08/17/16 09:45 (Ativan) 1 mg Q4H PRN PO 08/17/16 09:45 (Ativan Inj) 1 mg Q4H PRN IV PUSH 08/17/16 09:45 (Ativan) 2 mg Q2H PRN PO 08/17/16 09:45 (Ativan Inj) 2 mg Q2H PRN IV PUSH 08/17/16 09:45 (Ativan Inj) 2 mg Q1H PRN IV PUSH 08/17/16 09:45 (Ativan Inj) 2 mg Q15M PRN IV PUSH 08/17/16 09:45 (Haldol Inj) 2 mg Q15M PRN IM 08/17/16 09:45 A/P Problem List: (1) Encephalopathy ICD Code: G93.40 Status: Acute (2) Alcohol intoxication ICD Code: F10.929 Status: Acute (3) Suicidal ideation ICD Code: R45.851 Status: Acute (4) Hyponatremia ICD Code: E87.1 Status: Acute (5) Lactic acidosis ICD Code: E87.2 Status: Acute (6) Dehydration ICD Code: E86.0 Status: Acute Assessment and Plan 65-year-old female with a PMH of Anxiety, PTSD, Mood Disorder and Alcohol Abuse who was brought to the ER by EMS after being found lying in her front yard without pants on. Acute Toxic Encephalopathy: Likely secondary to Alcohol Intoxication/Benzo. CT Head w/ no acute findings, images reviewed by me. Mental status improved while in ER. Neuro checks q4h. Patient now AAOx4. Resolved. Alcohol Intoxication: H/o Alcohol Abuse w/ Acute Alcohol Intoxication, Alcohol 91. Drinks daily per report, unknown amount, patient reports 6 beers yesterday 08/16. CIWA, Seizure Precautions, MVT/Thiamine/Folate replacement. Suicidal Ideation: Per , pt feeling guilty because Son is in senior care. Pt relayed suicidal ideation, currently under [place] Act. Consult Psych for further eval, recommends admission to inpatient psychiatry when medically clear. Continue 1 to 1 sitter for now. Hyponatremia: Na 124, likely secondary to alcohol abuse/dehydration, s/p 2L IVF in ER, repeat labs with Na 134. Will discontinue fluids. Encourage oral hydration. Lactic Acidosis: Lactate 2.2, no evidence of sepsis, likely secondary to dehydration. Repeat lactate 1.7. Resolved. DVT Prophylaxis: SCD/Teds. Discharge Planning 1000hrs: Patient AAOx4 however slightly drowsy still. Will recheck patient after lunch and likely medically clear at that time. 1330hrs: Patient re-evaluated. She is much more awake and alert. Tolerated lunch. She is medically clear for discharge to inpatient psychiatry. Discharge patient to inpatient psychiatry Condition on discharge: Stable Regular Diet as tolerated Ad Analy activity Rx written: thiamine/folate/MV Follow-up with primary care physician and psychiatry Ana Jasso PA-C Aug 17, 2016 10:47 am
[2016-08-17 13:06] VITALS: BP 134/72; PULSE 68; TEMP 98.6; O2SAT 96
[2016-08-17] MEDS ORDERED: THERM PO (13:06)
[2016-08-17] MEDS ORDERED: GNP100TA3 PO (13:06)
[2016-08-17] MEDS ORDERED: FOLI1TAB6 PO (13:06)
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
--- NOTE | 2016-08-17 13:19 | EKG ---
Date Performed: 08/16/2016 Time Performed: 19:45:20 PTAGE: 65 years EKG: Sinus rhythm POSSIBLE RIGHT VENTRICULAR CONDUCTION DELAY BORDERLINE ECG INTERPRETATION BASED ON A DEFAULT AGE OF 41 YEARS NO PREVIOUS TRACING DOCTOR: Alon Araiza Interpretating Date/Time 08/17/2016 13:14:43
== END 2016-08-17 14:51 ==
LOC: NEPC 18:18 → NEDA 21:28 → NEPGCP 08-17 01:21
PROVIDERS: ADMIT Family Medicine; ATTEND Family Medicine
DX: G92 Toxic encephalopathy (principal); F10.129 Alcohol abuse with intoxication, unspecified; R45.851 Suicidal ideations; E87.1 Hypo-osmolality and hyponatremia; E87.2 Acidosis; E86.0 Dehydration; R55 Syncope and collapse; R41.82 Altered mental status, unspecified; F41.9 Anxiety disorder, unspecified; F43.10 Post-traumatic stress disorder, unspecified; F32.9 Major depressive disorder, single episode, unspecified; R53.81 Other malaise
CPT/HCPCS: 70450; 71010; 80048; 80053; 80307; 81001; 82140; 82550; 82552; 83605; 83690; 83735; 84155; 84443; 84484; 85025; 85610; 85730; 86403; 87040; 87205; 93005; 96360; 96361; 99285; G0378; J7030; P9612

== ENCOUNTER 2016-08-17 14:30 | Inpatient (IN) | payer OTHER ==
[~2016-08-17] VITALS: Ht 167.6 cm; Wt 118.1 kg
[~2016-08-17 14:30] MED LIST changes: +FOLI1TAB6 PO; +GNP100TA3 PO; +THERM PO; -XANA0.5T PO
[2016-08-17 15:26] VITALS: BP 117/56; PULSE 84; RESP 18; TEMP 97.8
[2016-08-17] MEDS ORDERED: LORazepam 0.5 MG TAB PO PRN (17:15)
[2016-08-17] MEDS ORDERED: FLUMAZENIL 0.5 MG/5 ML VIAL IV PUSH PRN (17:15)
[2016-08-17] MEDS: MULTIVITAMINS/MINERALS THERAPEUTIC TAB PO SCH (17:15)
[2016-08-17] MEDS ORDERED: LORazepam 2 MG/ML VIAL IM PRN ×2 (17:15)
[2016-08-17] MEDS: NICOTINE 21 MG/24 HR PATCH T-DERMAL SCH (17:15)
[2016-08-17] MEDS ORDERED: LORazepam 2 MG/ML VIAL IV PUSH PRN ×4 (17:15)
[2016-08-17] MEDS ORDERED: LORazepam 1 MG TAB PO PRN (17:15)
[2016-08-17] MEDS ORDERED: ACETAMINOPHEN 325 MG TAB PO PRN (17:15)
[2016-08-17] MEDS ORDERED: MAGNESIUM HYDROXIDE SUSP 30 ML CUP PO PRN (17:15)
[2016-08-17] MEDS ORDERED: ALUMINUM/MAGNESIUM/SIMETH 30 ML CUP PO PRN (17:15)
[2016-08-17 18:36] VITALS: BP 133/63; PULSE 68; RESP 15; O2SAT 99
[2016-08-17] MEDS: LORazepam 1 MG TAB PO PRN (20:10)
[2016-08-17] MEDS ORDERED: REMOVE OLD PATCH T-DERMAL SCH (21:00)
[2016-08-18] MEDS: LORazepam 2 MG TAB PO PRN ×3 (01:41→08:56)
[2016-08-18 04:50] VITALS: BP 173/96; PULSE 67; RESP 17; TEMP 97.6; O2SAT 100
[2016-08-18] MEDS: FOLIC ACID 1 MG TAB PO SCH (08:55)
[2016-08-18] MEDS: THIAMINE HCL 100 MG TAB PO SCH (08:55)
[2016-08-18] MEDS: NICOTINE 21 MG/24 HR PATCH T-DERMAL SCH (08:56)
[2016-08-18] MEDS: MULTIVITAMINS/MINERALS THERAPEUTIC TAB PO SCH (08:56)
[2016-08-18] MEDS ORDERED: ACETAMINOPHEN 325 MG TAB PO PRN (09:00)
[2016-08-18] MEDS ORDERED: ALUMINUM/MAGNESIUM/SIMETH 30 ML CUP PO PRN (09:00)
[2016-08-18] MEDS ORDERED: MAGNESIUM HYDROXIDE SUSP 30 ML CUP PO PRN (09:00)
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
--- NOTE | 2016-08-18 14:20 | PD.CONS ---
HPI Service [facility] Hospitalists Consult Requested By Psychiatric services Reason for Consult Blood culture positive for gram-positive cocci Medical management Primary Care Physician Unknown Diagnoses: History of Present Illness 66 yo female with a past medical history of anxiety, PTSD, mood disorder and alcohol abuse who was brought into the ER by EMS after being found lying in her front yard without any pants on. Patient was placed under Matute act for suicidal ideation. Reportedly, patient's been very upset and feeling guilty after one of her sons was recently incarcerated. Per review of the medical record, patient endorsed drinking 6 beers and then being out in the hot sun. She is unable to recall if she took a Xanax. While in the CDU, patient was noted to have hyponatremia felt likely to be due to dehydration which improved after receiving 2 L of IV fluids. Blood cultures obtained at that time were positive for gram positive cocci 1. Culture showed no growth to date. Patient is since been admitted to psychiatric unit and hospitalist services have been consulted due to positive blood culture and medical management. Patient seen and examined today. Her son is at the bedside. Patient is upset and tearful reporting several times that it is "all her fault" that her son has been imprisoned. She denies any recent illness. She denies any complaints of fever, chills, headache, dizziness, cough, nausea, vomiting, shortness of breath , chest pain, abdominal pain, dysuria, hematuria, diarrhea, constipation or black/tarry/bloody stools. Review of Systems Except as stated in HPI: all other systems reviewed are Neg Past Family Social History Allergies: Coded Allergies: No Known Allergies (Unverified , 03/03/14) Past Medical History PTSD Anxiety Mood disorder Alcohol abuse Past Surgical History Patient denies any previous surgical procedures Reported Medications Multiple Vitamins W/ Minerals (Thera M Plus)1 Tab1 Tab PO DAILY #5 TAB Prov:Ana Jasso PA-C 08/17/16 Thiamine HCl (Gnp Vitamin B-1)100 Mg Tno024 Mg PO DAILY #30 TAB Prov:Ana Jasso PA-C 08/17/16 Folic Acid 1 Mg Tablet1 Mg PO DAILY #5 TAB Prov:Ana Jasso PA-C 08/17/16 Alprazolam (Xanax 0.5 mg)Alprazolam 0.5 mg Tab1 Tab PO Q6H PRN (ANXIETY) 03/03/14 Active Ordered Medications Current Medications Medications (Trade) Dose Ordered Sig/Macrina Route Start Time Stop Time Status Last Admin (Folate) 1 mg DAILY PO 08/18/16 09:00 08/18/16 08:55 (Theragran M Tab) 1 tab DAILY PO 08/17/16 17:15 08/18/16 08:56 (Vitamin B1) 100 mg DAILY PO 08/18/16 09:00 08/18/16 08:55 (Ativan) 1 mg Q6H PRN PO 08/17/16 17:15 08/17/16 20:10 (Ativan Inj) 1 mg Q6H PRN IM 08/17/16 17:15 (Romazicon Inj) 0.2 mg Q1M PRN IV PUSH 08/17/16 17:15 (Ativan) 1 mg Q4H PRN PO 08/17/16 17:15 (Ativan Inj) 1 mg Q4H PRN IV PUSH 08/17/16 17:15 (Ativan) 2 mg Q2H PRN PO 08/17/16 17:15 08/18/16 08:56 (Ativan Inj) 2 mg Q2H PRN IV PUSH 08/17/16 17:15 (Ativan Inj) 2 mg Q1H PRN IV PUSH 08/17/16 17:15 (Ativan Inj) 2 mg Q15M PRN IV PUSH 08/17/16 17:15 (Tylenol) 650 mg Q4H PRN PO 08/18/16 09:00 (Milk Of Magnesia Liq) 30 ml DAILY PRN PO 08/18/16 09:00 (Mag-Al Plus Susp Liq) 30 ml Q6H PRN PO 08/18/16 09:00 (Habitrol 21 Mg Patch.24 Hr) 1 patch DAILY T-DERMAL 08/19/16 09:00 Miscellaneous Information 1 HS T-DERMAL 08/18/16 21:00 Family History Reviewed family history with patient. No history of diabetes or coronary artery disease. Patient does report mother with non-small cell cancer. Father age 83 of old age. Social History Patient reports a history of tobacco use 5 cigarettes a day and she was a teenager. She admits to drinking 2 beers at night. She denies any illicit drug use. Physical Exam Vital Signs Vital Signs Date Time Temp Pulse Resp B/P Pulse Ox O2 Delivery O2 Flow Rate FiO2 08/18/16 04:50 97.6 67 17 173/96 100 08/17/16 18:36 68 15 133/63 99 08/17/16 15:26 97.8 84 18 117/56 Physical Exam GENERAL: This is a well-nourished, well-developed patient, in no apparent distress. Awake and alert. Tearful. SKIN: No rashes or lesions. Cool and dry. Ecchymoses noted on right elbow (she attempted to climb a fence recently). HEAD: Atraumatic. Normocephalic. No temporal or scalp tenderness. EYES: Pupils equal round and reactive. Extraocular motions intact. No scleral icterus. No injection or drainage. ENT: Nose without bleeding, purulent drainage or septal hematoma. Throat without erythema, tonsillar hypertrophy or exudate. Uvula midline. Airway patent. NECK: Trachea midline. No lymphadenopathy. Supple, nontender, no meningeal signs. CARDIOVASCULAR: Regular rate and rhythm without murmurs, gallops, or rubs. RESPIRATORY: Clear to auscultation. Breath sounds equal bilaterally. No wheezes , rales, or rhonchi. GASTROINTESTINAL: Abdomen soft, non-tender, nondistended. No hepato-splenomegaly , or palpable masses. No guarding. MUSCULOSKELETAL: Extremities without clubbing, cyanosis, or edema. No joint tenderness, effusion, or edema noted. No calf tenderness. NEUROLOGICAL: Awake and alert. Able to move all extremities. Normal speech. Assessment and Plan Assessment and Plan 66 yo female with a past medical history of anxiety, PTSD, mood disorder and alcohol abuse who was brought into the ER by EMS after being found lying in her front yard without any pants on. Patient was placed under Matute act for suicidal ideation. Recent blood cultures positive for gram-positive cocci x 1 and hospitalist services consulted for medical management. Suicidal ideation Adjustment disorder - Management per psychiatric team Hyponatremia Improved after receiving IV fluids - Now mild with sodium level of 134 - Likely due to alcohol consumption and dehydration - Encourage oral hydration Alcohol abuse - Advised on alcohol abstinence - ETOH level 91 in the ED - [facility] protocol - continue MVI/Thiamine/Folate replacement daily Blood culture with gram-positive cocci 1 - likely contaminant - Follow up blood cultures showed no growth - patient is afebrile and without any complaints. WBC 6.7 Tobacco use - advised on smoking cessation - nicotine patch ordered DVT prophylaxis - patient is ambulatory Discussed with patient, nursing staff and Dr. Olmstead Patient appears stable from hospitalist standpoint. Will sign off. Please reconsult if needed. Discussed Condition With The exam, history, and the medical decision-making described in the above note were completed with the assistance of the mid-level provider. I reviewed and agree with the findings presented. I attest that I had a [id number] encounter with the patient on the same day, and personally performed and documented my assessment and findings in the medical record.patient seen on date of service. Patient appears comfortable. bacteremia.Most likely contaminant. No reason for blood culture to be obtained in the first place.follow-up result Kimberly Weiss Aug 18, 2016 14:20 Adolfo Olmstead MD Aug 20, 2016 09:44
[2016-08-18] MEDS: LORazepam 1 MG TAB PO PRN ×2 (16:00→22:22)
[2016-08-18 18:00] VITALS: BP 111/56; PULSE 82; RESP 18; TEMP 97.9; O2SAT 96
[2016-08-18] MEDS ORDERED: REMOVE OLD NICODERM (NICOTINE) PATCH T-DERMAL SCH (21:00)
[2016-08-19 06:22] VITALS: BP 112/60; PULSE 69; RESP 19; TEMP 97.2; O2SAT 96
[2016-08-19] MEDS ORDERED: NICOTINE 21 MG/24 HR PATCH T-DERMAL SCH (09:00)
[2016-08-19] MEDS: THIAMINE HCL 100 MG TAB PO SCH (09:03)
[2016-08-19] MEDS: MULTIVITAMINS/MINERALS THERAPEUTIC TAB PO SCH (09:03)
[2016-08-19] MEDS: FOLIC ACID 1 MG TAB PO SCH (09:03)
[2016-08-19] MEDS: LORazepam 1 MG TAB PO PRN (09:10)
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
== END 2016-08-19 15:33 | disposition home or self-care (01) | DRG 882 ==
LOC: H250 14:30
PROVIDERS: ADMIT Psychiatry & Neurology Psychiatry; ATTEND Psychiatry & Neurology Psychiatry
DX: F43.23 Adjustment disorder with mixed anxiety and depressed mood (principal); E87.1 Hypo-osmolality and hyponatremia; R45.851 Suicidal ideations; E86.0 Dehydration; F10.129 Alcohol abuse with intoxication, unspecified; Y90.4 Blood alcohol level of 80-99 mg/100 ml; F39 Unspecified mood [affective] disorder; F43.10 Post-traumatic stress disorder, unspecified; F17.200 Nicotine dependence, unspecified, uncomplicated; Z62.810 Personal history of physical and sexual abuse in childhood